=== PATIENT | male | born 1945 | race Hispanic/Latino ===

== ENCOUNTER → 2020-07-18 | Outpatient (CLI) | payer OTHER ==
[~2020-07-18] VITALS: Ht 175.3 cm; Wt 108.4 kg
[~2020-07-18] MED LIST: IBUP1TAB71 PO; LISI10TA24 PO; NYQUIL PO; OMEP40CA13 PO; REGADENOSON 0.4 MG/5 ML PF SYG IVP SCH; SIMV10TA97 PO; TRAZ-185 PO
== END | disposition home or self-care (01) ==
LOC: SHCH 08:00
PROVIDERS: ATTEND Internal Medicine Cardiovascular Disease
DX: R07.9 Chest pain, unspecified (principal); R06.09 Other forms of dyspnea
CPT/HCPCS: 78452; 93017; 96374; A9500 ×2; J2785

== ENCOUNTER → 2020-07-25 | Outpatient (CLI) | payer OTHER ==
[~2020-07-25] MED LIST changes: -REGADENOSON 0.4 MG/5 ML PF SYG IVP SCH
== END | disposition home or self-care (01) ==
LOC: SHCH 13:28
PROVIDERS: ATTEND Internal Medicine Cardiovascular Disease
DX: R06.09 Other forms of dyspnea (principal); R07.9 Chest pain, unspecified
CPT/HCPCS: 93306; 93356

== ENCOUNTER 2020-08-12 06:51 | Day surgery (SDC) | payer OTHER ==
[2020-08-09 09:41] LABS: BASOPHILS % (AUTO) 0.2 % (0.0-5.0); EOSINOPHILS % (AUTO) 6.8 % (0.0-8.0); HEMATOCRIT 38.7 % (42-54); LYMPHOCYTES % (AUTO) 30.1 % (21.0-51.0); MEAN CORPUSCULAR HEMOGLOBIN 29.6 pg (27.0-33.0); MEAN CORPUSCULAR HGB CONC 33.9 g/dL (32.0-36.0); MEAN CORPUSCULAR VOLUME 87.4 fL (79-99); MONOCYTES % (AUTO) 11.6 % (3.0-13.0); PLATELET COUNT (AUTO) 237 K/uL (130-400); RED BLOOD CELL COUNT(AUTO) 4.43 MIL/uL (4.50-6.20); RED CELL DISTRIBUTION WIDTH 12.8 % (11.0-15.5); WHITE BLOOD COUNT (AUTO) 5.9 K/uL (4.8-10.8)
[2020-08-09 09:49] LABS: POTASSIUM 3.9 mmol/L (3.5-5.1)
[2020-08-09 09:51] LABS: APPEARANCE,URINE Clear (CLEAR); BILIRUBIN,URINE Negative (NEGATIVE); COLOR,URINE Yellow (YELLOW); GLUCOSE, URINE (UA) Negative (NEGATIVE); KETONES,URINE Negative (NEGATIVE); LEUKOCYTE ESTERASE ,URINE Negative (NEGATIVE); NITRATE,URINE Negative (NEGATIVE); OCCULT BLOOD,URINE Small (NEGATIVE); PROTEIN,URINE Negative (NEGATIVE)
[2020-08-09 10:00] LABS: BACTERIA,URINE Rare /HPF (None Seen); RBC,URINE 0-1 /HPF (0-1); SQUAMOUS EPITHELIAL CELL,UR Rare /HPF (0-2); WBC,URINE 0-1 /HPF (0-1)
[2020-08-09 10:10] LABS: INR 0.97 (0.85-1.15); PROTHROMBIN TIME 10.6 SEC (9.6-11.6)
[2020-08-09 10:11] LABS: PARTIAL THROMBOPLASTIN TIME 27.3 SEC (26.3-35.5)
[2020-08-09 15:42] VITALS: BP 144/66
[2020-08-12] VITALS (9 sets, daily range): BP systolic 126–147; BP diastolic 68–77
[~2020-08-12] VITALS: Ht 175.3 cm; Wt 109.8 kg
[~2020-08-12 06:51] MED LIST changes: +AMLO-257 PO; -IBUP1TAB71 PO; -LISI10TA24 PO; -NYQUIL PO; -OMEP40CA13 PO; +PANT40TA54 PO; +TAMS-1 PO; -TRAZ-185 PO
[2020-08-12] MEDS ORDERED: IOHEXOL 350 MG/ML 100ML INFUS..BTL IV ONE (07:53)
[2020-08-12] MEDS ORDERED: HEPARIN SODIUM 1000UNIT/ML 10ML VIAL ONE (07:53)
[2020-08-12] MEDS ORDERED: NITROGLYCERIN 2 MG/VIAL VIAL IV ONE (07:53)
[2020-08-12] MEDS ORDERED: IOHEXOL-350 50ML VIAL IV ONE (07:53)
[2020-08-12] MEDS ORDERED: BIVALIRUDIN 250 MG/VIAL IV ONE (07:53)
[2020-08-12] MEDS ORDERED: FENTANYL CITRATE PF 50 MCG/1 ML 2ML VIAL ONE (07:54)
[2020-08-12] MEDS ORDERED: LIDOCAINE HCL 2% 20ML ONE (07:54)
[2020-08-12] MEDS ORDERED: MIDAZOLAM HCL 1 MG/ML 2ML VIAL ONE (07:54)
[2020-08-12] MEDS ORDERED: SODIUM CHLORIDE 0.9% 1000ML 1,000 ML IV ONE (08:40)
[2020-08-12] MEDS ORDERED: METOPROLOL TARTRATE 1 MG/ML 5ML VIAL IV PRN (11:00)
[2020-08-12] MEDS ORDERED: NITROGLYCERIN 0.4 MG SL TAB SL PRN (11:00)
[2020-08-12] MEDS ORDERED: GLUCAGON 1MG KIT 1 MG ML IM PRN (11:00)
[2020-08-12] MEDS ORDERED: HYDRALAZINE HCL 20 MG/ML VIAL IV PRN (11:00)
[2020-08-12] MEDS ORDERED: SODIUM CHLORIDE 0.9% 1000ML 1,000 ML IV SCH (11:00)
[2020-08-12] MEDS ORDERED: DEXTROSE 50%-WATER 50 ML DISP.SYRIN IV PRN (11:00)
== END 2020-08-12 15:10 | disposition home or self-care (01) ==
LOC: DAH 06:51
PROVIDERS: ATTEND Internal Medicine Cardiovascular Disease
DX: I25.118 Atherosclerotic heart disease of native coronary artery with other forms of angina pectoris (principal); I11.9 Hypertensive heart disease without heart failure; E78.5 Hyperlipidemia, unspecified; F17.210 Nicotine dependence, cigarettes, uncomplicated; E66.9 Obesity, unspecified; Z82.49 Family history of ischemic heart disease and other diseases of the circulatory system; Z98.890 Other specified postprocedural states; Z68.35 Body mass index [BMI] 35.0-35.9, adult; Z79.01 Long term (current) use of anticoagulants; Z79.899 Other long term (current) drug therapy
CPT/HCPCS: 36415; 71045; 80048; 81001; 85025; 85610; 85730; 93005; 93458; A4215; A4216; A4221; A4222; A4223 ×3; A4606; A4663; C1894 ×2; J1644; J2250; J3010; J3490 ×2; J7030; Q9965; Q9967; 99156; 99157; J0583

== ENCOUNTER → 2020-11-06 | Outpatient (CLI) | payer OTHER | END | disposition home or self-care (01) | LOC: SHCH 13:42 | PROVIDERS: ATTEND Internal Medicine Cardiovascular Disease | DX: I87.2 Venous insufficiency (chronic) (peripheral) (principal); K21.9 Gastro-esophageal reflux disease without esophagitis | CPT/HCPCS: 93970 ==

== ENCOUNTER → 2022-09-15 | Outpatient (CLI) | payer OTHER | END | disposition home or self-care (01) | LOC: SHCH 08:49 | PROVIDERS: ATTEND Internal Medicine Cardiovascular Disease | DX: I87.2 Venous insufficiency (chronic) (peripheral) (principal) | CPT/HCPCS: 93970 ==

== ENCOUNTER 2022-12-06 14:20 | Emergency (ER) | payer OTHER ==
[~2022-12-06 14:20] MED LIST changes: +ONDANSETRON 4MG INJ ONE
[2022-12-07 07:36] LABS: POTASSIUM 3.4 mmol/L (3.5-5.1)
[2022-12-07 07:37] LABS: ALBUMIN 3.1 g/dL (3.5-5.0); BILIRUBIN,TOTAL 0.5 mg/dL (0.2-1.0); CREATININE 1.1 mg/dL (0.5-1.5); TOTAL PROTEIN, SERUM 6.7 g/dL (6.0-8.3)
[2022-12-07 07:38] LABS: HEMATOCRIT 38.6 % (42-54); MEAN CORPUSCULAR HEMOGLOBIN 30.3 pg (27.0-33.0); MEAN CORPUSCULAR HGB CONC 34.7 g/dL (32.0-36.0); MEAN CORPUSCULAR VOLUME 87.3 fL (79-99); PLATELET COUNT (AUTO) 231 K/uL (130-400); RED BLOOD CELL COUNT(AUTO) 4.42 MIL/uL (4.50-6.20); RED CELL DISTRIBUTION WIDTH 41.8 % (11.0-15.5); WHITE BLOOD COUNT (AUTO) 7.8 K/uL (4.8-10.8)
[2022-12-07 07:39] LABS: BASOPHILS # (AUTO) 0.02 K/uL (0.00-0.20); BASOPHILS % (AUTO) 0.3 % (0.0-5.0); EOSINOPHILS # (AUTO) 0.31 K/uL (0.00-0.70); IMMATURE GRANULOCYTE ABSOLUTE 0.03 K/uL (0-1); LYMPHOCYTES # (AUTO) 2.2 K/uL (1.0-4.8); MONOCYTES # (AUTO) 0.7 K/uL (0.1-1.0); MONOCYTES % (AUTO) 9.4 % (3.0-13.0); NEUTROPHILS # (AUTO) 4.5 K/uL (1.8-7.7); NEUTROPHILS % (AUTO) 57.9 % (40.0-77.0)
[2022-12-07 07:43] LABS: APPEARANCE,URINE CLEAR (CLEAR); COLOR,URINE YELLOW (YELLOW); GLUCOSE, URINE (UA) NEGATIVE (NEGATIVE); KETONES,URINE NEGATIVE (NEGATIVE); OCCULT BLOOD,URINE NEGATIVE (NEGATIVE); PH,URINE 5.5 (5.0-8.0); PROTEIN,URINE NEGATIVE (NEGATIVE)
[2022-12-07 07:44] LABS: ADD UA MICROSCOPIC NO; BILIRUBIN,URINE NEGATIVE (NEGATIVE); LEUKOCYTE ESTERASE ,URINE NEGATIVE Leu/uL (NEGATIVE); NITRATE,URINE NEGATIVE (NEGATIVE)
== END 2022-12-06 16:00 | disposition home or self-care (01) ==
LOC: EDH 14:20
DX: B02.22 Postherpetic trigeminal neuralgia (principal); R10.9 Unspecified abdominal pain; E78.5 Hyperlipidemia, unspecified; I50.9 Heart failure, unspecified; I11.0 Hypertensive heart disease with heart failure; J44.9 Chronic obstructive pulmonary disease, unspecified
CPT/HCPCS: 99284; 74176; 84484; 80053; 82140; 83690; 85025; 83605; 81003; 36415; 93005; J2405

== ENCOUNTER → 2023-04-27 | Outpatient (CLI) | payer OTHER ==
[~2023-04-27] MED LIST changes: -ONDANSETRON 4MG INJ ONE
[2023-04-27 12:22] LABS: BASOPHILS # (AUTO) 0.03 K/uL (0.00-0.20); BASOPHILS % (AUTO) 0.3 % (0.0-5.0); EOSINOPHILS # (AUTO) 0.25 K/uL (0.00-0.70); EOSINOPHILS % (AUTO) 2.5 % (0.0-8.0); HEMATOCRIT 40.5 % (42-54); LYMPHOCYTES # (AUTO) 2.2 K/uL (1.0-4.8); LYMPHOCYTES % (AUTO) 21.5 % (21.0-51.0); MEAN CORPUSCULAR HEMOGLOBIN 30.4 pg (27.0-33.0); MEAN CORPUSCULAR HGB CONC 33.8 g/dL (32.0-36.0); MONOCYTES # (AUTO) 0.9 K/uL (0.1-1.0); MONOCYTES % (AUTO) 9.4 % (3.0-13.0); NEUTROPHILS # (AUTO) 6.6 K/uL (1.8-7.7); NEUTROPHILS % (AUTO) 65.3 % (40.0-77.0); PLATELET COUNT (AUTO) 224 K/uL (130-400); RED CELL DISTRIBUTION WIDTH 15.1 % (11.0-15.5)
[2023-04-27 12:32] LABS: INR < 0.93 (0.85-1.15); PROTHROMBIN TIME 9.8 SEC (9.6-11.6)
[2023-04-27 12:33] LABS: PARTIAL THROMBOPLASTIN TIME 25.4 SEC (26.3-35.5)
[2023-04-27 12:37] LABS: CREATININE 1.1 mg/dL (0.5-1.5); POTASSIUM 3.9 mmol/L (3.5-5.1)
== END | disposition home or self-care (01) ==
LOC: LAB 10:25
PROVIDERS: ATTEND Internal Medicine Cardiovascular Disease
DX: I87.2 Venous insufficiency (chronic) (peripheral) (principal); I87.1 Compression of vein; R06.02 Shortness of breath; E78.5 Hyperlipidemia, unspecified; I10 Essential (primary) hypertension
CPT/HCPCS: 36415; 80048; 85025; 85610; 85730

== ENCOUNTER 2023-08-11 10:51 | Emergency (ER) | payer OTHER ==
[~2023-08-11] VITALS: Ht 172.7 cm; Wt 113.4 kg
[2023-08-11] MEDS: MORPHINE 4 MG SYG IM ONE (14:25)
[2023-08-11 14:42] VITALS: BP 136/76; PULSE 61; RESP 18; O2SAT 99
== END 2023-08-11 15:25 | disposition home or self-care (01) ==
LOC: EDH 10:51
DX: S80.12XA Contusion of left lower leg, initial encounter (principal); S70.12XA Contusion of left thigh, initial encounter; E78.00 Pure hypercholesterolemia, unspecified; I10 Essential (primary) hypertension; W18.39XA Other fall on same level, initial encounter; Y93.89 Activity, other specified; Y92.89 Other specified places as the place of occurrence of the external cause; Y99.8 Other external cause status
CPT/HCPCS: 99285; 70450; 73552; 72170; 73590; 71101; 72125; 70486; 96372; J2270

== ENCOUNTER → 2023-11-22 | Outpatient (CLI) | payer OTHER ==
[~2023-11-22] MED LIST changes: +ALBU18HF7 IH; -AMLO-257 PO; +ASPI-1197 PO; +BETA15CR5 TP; +CLOP-31 PO; +DOXY100C61 PO; +FINA5TAB41 PO; +FLUT1DIS4 IH; +GABA-529 PO; +HYDR25 PO; +IBUP-2070 PO; +NYST15CR39 TP; +OXYM15MI2 NS; -PANT40TA54 PO; +UMEC1DIS IH
== END | disposition home or self-care (01) ==
LOC: SHCH 13:46
PROVIDERS: ATTEND Internal Medicine Cardiovascular Disease
DX: Z09 Encounter for follow-up examination after completed treatment for conditions other than malignant neoplasm (principal); I87.2 Venous insufficiency (chronic) (peripheral)
CPT/HCPCS: 93971

== ENCOUNTER → 2024-04-04 | Outpatient (CLI) | payer OTHER ==
[~2024-04-04] MED LIST changes: +BETA15CR12 TP; -BETA15CR5 TP
--- NOTE | 2024-04-04 17:59 | HMCSR ---
APPROVED REPORT Laterality: Bilateral Indications Claudication: , PAD VELOCITY AND DOPPLER WAVEFORM ANALYSIS PERSONAL INVESTMENT ADVISER (R) 135.4cm/sec, Triphasic, PERSONAL INVESTMENT ADVISER (L) 115.9cm/sec, Triphasic, Prof Fem Art. (R) 68.2cm/sec, Triphasic, Prof Fem Art. (L) 77.2cm/sec, Triphasic, Fem Art Prox. (R) 79.0cm/sec, Triphasic, Fem Art Prox. (L) 88.8cm/sec, Triphasic, Fem Art Mid. (R) 105.4cm/sec, Triphasic, Fem Art Mid. (L) 89.7cm/sec, Triphasic, Fem Art Dist (R) 106.5cm/sec, Triphasic, Fem Art Dist. (L) 109.0cm/sec, Triphasic, Pop Art(AK) (R) 79.9cm/sec, Triphasic, Pop Art (AK) (L) 73.6cm/sec, Triphasic, Pop Art (Fossa)(R) 71.8cm/sec, Triphasic, Pop Art (Fossa) (L) 60.1cm/sec, Triphasic, Pop Art(BK) (R) 104.9cm/sec, Triphasic, Pop Art (BK) (L) 55.6cm/sec, Triphasic, LOCAL SUPERINTENDENT Prox. (R) 44.9cm/sec, Biphasic, LOCAL SUPERINTENDENT Prox. (L) 62.8cm/sec, Triphasic, LOCAL SUPERINTENDENT Mid. (R) 53.8cm/sec, Biphasic, LOCAL SUPERINTENDENT Mid. (L) 88.8cm/sec, Triphasic, LOCAL SUPERINTENDENT Dist. (R) 53.8cm/sec, Biphasic, LOCAL SUPERINTENDENT Dist. (L) 72.7cm/sec, Triphasic, Per Art Prox. (R) 51.8cm/sec, Biphasic, Per Art Prox. (L) 42.6cm/sec, Biphasic, Per Art Mid. (R) 48.3cm/sec, Biphasic, Per Art Mid. (L) 38.7cm/sec, Biphasic, Per Art Dist. (R) 45.6cm/sec, Biphasic, Per Art Dist. (L) 47.1cm/sec, Biphasic, DEMETRIO Prox. (R) 72.7cm/sec, Triphasic, DEMETRIO Prox. (L) 74.1cm/sec, Biphasic, DEMETRIO Mid. (R) 54.7cm/sec, Triphasic DEMETRIO Mid. (L) 69.5cm/sec, Biphasic, DEMETRIO Dist. (R) 78.1cm/sec, Triphasic, DEMETRIO Dist. (L) 56.7cm/sec, Biphasic, Technologist Impression No evidence of significant arterial insufficiency of bilateral lower extremities. Conclusion No evidence of significant arterial insufficiency of bilateral lower extremities. Conclusion No evidence of significant arterial insufficiency of bilateral lower extremities.
== END | disposition home or self-care (01) ==
LOC: SHCH 10:28
PROVIDERS: ATTEND Internal Medicine Cardiovascular Disease
DX: I73.9 Peripheral vascular disease, unspecified (principal)
CPT/HCPCS: 93925